=== PATIENT | male | born 1985 ===

== ENCOUNTER 2018-12-09 19:11 | Outpatient (CLI) | payer BC | END 2018-12-09 19:12 | disposition home or self-care (01) | LOC: C.SLEEP 19:12 | DX: G47.33 Obstructive sleep apnea (adult) (pediatric) (principal) ==

== ENCOUNTER 2018-12-10 11:05 | Outpatient (CLI) | payer BC | END 2018-12-10 11:06 | disposition home or self-care (01) | LOC: C.SLEEP 11:05 ==